=== PATIENT | female | born 1945 | race Caucasian/White ===

== ENCOUNTER 2019-02-20 11:33 | Emergency (ER) | payer MEDICARE ==
[2019-02-20 12:01] LABS: Bilirubin Negative (Negative); Blood, Urine Negative (Negative); Clarity CLEAR (Clear); Glucose, Urine (Dipstick) Negative (Negative); Leukocyte Negative (Negative); Nitrite Negative (Negative); Protein, Urine (Dipstick) Negative (Neg-Trace); Specific Gravity, Urine 1.019 (1.002-1.036); Urobilinogen 0.2 mg/dL (0.2-1.0); pH, Urine 6.5 (5.0-9.0)
[2019-02-20 12:12] LABS: #Lymphocytes 2.3 thou/uL (1.20-3.40); #Monocytes 0.7 thou/uL (0.11-0.59); #Neutrophils 16.3 thou/uL (1.40-6.50); %Basophils 0.1 % (0.0-1.0); %Eosinophils 0.2 % (0.0-10.0); %Lymphocytes 11.8 % (21.0-51.0); %Monocytes 3.7 % (0.0-10.0); %Neutrophils 84.2 % (42.0-75.0); Hemoglobin 12.9 g/dL (12.0-16.0); Mean Corpuscular HGB CONC 32.5 g/dL (32.0-36.0); Mean Corpuscular Hemoglobin 28.4 pg (27.0-31.0); Mean Corpuscular Volume 87.2 fL (78.0-98.0); Mean Platelet Volume 7.9 fL (7.4-10.4); Platelet Count 299 thou/uL (130-400); RBC Distribution Width 13.2 % (11.5-14.5); Red Blood Cell (RBC) Count 4.53 mill/uL (4.20-5.40); White Blood Cell (WBC) Count 19.4 thou/uL (4.8-10.8)
[2019-02-20 12:31] LABS: ALT (SGPT) 16 U/L (8-55); AST (SGOT) 12 U/L (5-34); Albumin 4.3 g/dL (3.4-4.8); Alkaline Phosphatase 85 U/L (40-150); Anion Gap 14 mmol/L (10-20); BUN (Urea Nitrogen) 20 mg/dL (9.8-20.1); Bilirubin, Total 0.5 mg/dL (0.2-1.2); Calc. Creatinine Clearance 0 mL/min (70-130); Calcium 9.8 mg/dL (7.8-10.44); Carbon Dioxide 27 mmol/L (23-31); Chloride 100 mmol/L (98-107); Estimated GFR-MDRD 90; Globulin 3.4 g/dL (2.4-3.5); Glucose 128 mg/dL (83-110); Lipase 11 U/L (8-78); Potassium 3.7 mmol/L (3.5-5.1); Protein, Total 7.7 g/dL (6.0-8.3); Sodium 137 mmol/L (136-145)
--- NOTE | 2019-02-20 13:44 | CT ---
ABDOMEN AND PELVIC CT SCAN WITH IV CONTRAST: Date: 02/20/19 HISTORY: Abdominal pain, history of hernia repair and cholecystectomy and hysterectomy. FINDINGS: Visualized lung bases appear clear. Status post cholecystectomy without ductal dilatation. Visualized pancreas and spleen are unremarkable. 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 Small hiatal hernia. No renal calculus or acute obstruct ion. Approximately 1.1 cm diameter low attenuation focus in the right kidney, but not a definitive cy st. This could represent a hemorrhagic cyst, or possibly a solid mass. Postop changes noted involving the region of the sigmoid colon with prior anastomosis. Minimal left colon diverticulosis without ac lili diverticulitis. Evidence for lower lumbar spine laminectomy. No evidence for large or small bowel obstruction. No abscess or abnormal fluid collection. IMPRESSION: No significant acute process in the abdomen or pelvis. Bilateral small adrenal nodularity, including a small right adrenal myolipoma. 1.1 cm diameter low attenuation focus in the right kidney, not a def initive benign cyst. Depending upon concern, nonemergent follow-up CT scan with and without IV contra st with renal mass protocol should be considered. Postop anastomotic changes in the region of the sig moid colon with some left-sided colon diverticulosis but no evidence for acute diverticulitis. Small hiatal hernia. No evidence for overt bowel obstruction. Other findings as above. POS: OFF
[2019-02-20] MEDS ORDERED: ISOVUE-370 76%-LOCM 1 ML ONE (13:58)
[2019-02-20] MEDS ORDERED: Ondansetron PF 4 MG/2 ML Vial ONE (15:23)
[2019-02-20] MEDS ORDERED: Dicyclomine 20 MG TAB ONE (19:30)
== END 2019-02-20 19:38 | disposition home or self-care (01) ==
LOC: ERS 11:33
DX: K59.00 Constipation, unspecified (principal); K56.609 Unspecified intestinal obstruction, unspecified as to partial versus complete obstruction; I10 Essential (primary) hypertension; I48.91 Unspecified atrial fibrillation
CPT/HCPCS: 36415; 74177; 80053; 81003; 83690; 85025; 96361; 96374; J2405

== ENCOUNTER 2019-08-01 09:46 | Outpatient (CLI) | payer MEDICARE ==
--- NOTE | 2019-08-01 11:14 | MMO ---
Bilateral MAMMO Bilat Screen [facility]DI+[facility]ANIA. CLINICAL HISTORY: Patient is 73 years old and is seen for screening. The patient has no family history of breast cancer. The patient has no personal history of cancer. VIEWS: The views performed were: bilateral craniocaudal with tomosynthesis; bilateral mediolateral oblique with tomosynthesis; and right craniocaudal. FILMS COMPARED: The present examination has been compared to a prior imaging study performed at [facility] on 08/02/2018. This study has been interpreted with the assistance of computer-aided detection. MAMMOGRAM FINDINGS: There are scattered fibroglandular densities. There are benign appearing calcifications seen in both breasts. There are no suspicious masses, suspicious calcifications, or new areas of architectural distortion. IMPRESSION: THERE IS NO MAMMOGRAPHIC EVIDENCE OF MALIGNANCY. A ROUTINE FOLLOW-UP MAMMOGRAM IN 1 YEAR IS RECOMMENDED. THE RESULTS OF THIS EXAM WERE SENT TO THE PATIENT. ACR BI-RADS Category 2 - Benign finding MAMMOGRAPHY NOTE: 1. A negative mammogram report should not delay a biopsy if a dominant of clinically suspicious mass is present. 2. Approximately 10% to 15% of breast cancers are not detected by mammography. 3. Adenosis and dense breasts may obscure an underlying neoplasm. Reported by: YOLIS SINGH MD Electonically Signed: [id number]
== END 2019-08-01 09:47 | disposition home or self-care (01) ==
LOC: BICMAMMO 09:46
PROVIDERS: ATTEND Family Medicine
DX: Z12.31 Encounter for screening mammogram for malignant neoplasm of breast (principal)
CPT/HCPCS: 77063; 77067

== ENCOUNTER 2019-12-24 13:36 | Observation (INO) | payer MEDICARE ==
[2019-12-24 14:09] LABS: #Basophils 0.1 thou/uL (0.0-0.2); #Eosinphils 0.2 thou/uL (0.0-0.7); #Lymphocytes 4.3 thou/uL (1.20-3.40); #Monocytes 0.6 thou/uL (0.11-0.59); #Neutrophils 6.6 thou/uL (1.40-6.50); %Basophils 0.4 % (0.0-1.0); %Eosinophils 1.5 % (0.0-10.0); %Lymphocytes 36.8 % (21.0-51.0); %Monocytes 5.4 % (0.0-10.0); %Neutrophils 55.9 % (42.0-75.0); Hemoglobin 13.7 g/dL (12.0-16.0); Mean Corpuscular HGB CONC 33.3 g/dL (32.0-36.0); Mean Corpuscular Hemoglobin 29.1 pg (27.0-31.0); Mean Corpuscular Volume 87.4 fL (78.0-98.0); Mean Platelet Volume 8.6 fL (7.4-10.4); Platelet Count 293 thou/uL (130-400); RBC Distribution Width 12.9 % (11.5-14.5); Red Blood Cell (RBC) Count 4.71 mill/uL (4.20-5.40); White Blood Cell (WBC) Count 11.8 thou/uL (4.8-10.8)
--- NOTE | 2019-12-24 14:14 | RAD ---
EXAM: CHEST ONE VIEW HISTORY: Dyspnea. Fluttering in chest which started today. COMPARISON: 04/03/2018 FINDINGS: The cardiac silhouette and pulmonary vasculature is within normal limits. The lungs are clear. The os seous structures are intact. Vascular calcification are again seen in the thoracic aorta. IMPRESSION: No acute cardiopulmonary process.
[2019-12-24 14:40] LABS: ALT (SGPT) 13 U/L (8-55); AST (SGOT) 10 U/L (5-34); Albumin 4.7 g/dL (3.4-4.8); Alkaline Phosphatase 98 U/L (40-110); Anion Gap 13 mmol/L (10-20); BUN (Urea Nitrogen) 18 mg/dL (9.8-20.1); Bilirubin, Total 0.3 mg/dL (0.2-1.2); Calc. Creatinine Clearance 0 mL/min (70-130); Calcium 10.2 mg/dL (7.8-10.44); Carbon Dioxide 29 mmol/L (23-31); Chloride 102 mmol/L (98-107); Estimated GFR-MDRD 77; Globulin 3.5 g/dL (2.4-3.5); Glucose 151 mg/dL (83-110); Magnesium 1.9 mg/dL (1.6-2.6); Potassium 3.1 mmol/L (3.5-5.1); Protein, Total 8.2 g/dL (6.0-8.3); Sodium 141 mmol/L (136-145)
[2019-12-24] MEDS ORDERED: Diltiazem 125 MG in Sodium Chloride 0.9% 100 ML IVPB PRN (16:25)
[2019-12-24] MEDS: Potassium Chloride 20 MEQ TAB PO SCH ×2 (16:30→20:28)
[2019-12-24 17:22] LABS: Troponin I Less than 0.010 ng/mL (< 0.028)
--- NOTE | 2019-12-24 17:22 | HP ---
PRIMARY CARE PROVIDER: Dr. Maria Luisa He. PRIMARY ARMATURE COIL WINDER: Dr. Hernández. CHIEF COMPLAINT: Palpitations. HISTORY OF PRESENT ILLNESS: Ms. Rios is a pleasant 74-year-old lady, who was seen at [facility] on December 24, 2019. She reports that several years ago, she was diagnosed with atrial fibrillation. She was started on propafenone 150 mg 3 times a day. She has not been on anticoagulation for atrial fibrillation. She does report being on anticoagulation for a short duration following knee replacement surgery. The patient reportedly converted to normal sinus rhythm soon after diagnosis. She had one incident during this year, seems she forgot her propafenone dose, and had atrial fibrillation. She took her medications today. However, around 12:30 a.m., she started having lightheadedness and palpitations. She checked her pulse and found that it was irregular. She had her colleague put on a Fitbit watch on her, and it showed heart rate fluctuating and above 100. She therefore presented to the emergency room. She reports that the palpitations were associated with shortness of breath. She denies any chest pain, nausea, or vomiting. She denies any abdominal pain. REVIEW OF SYSTEMS: All systems were reviewed and found to be negative except for pertinent positives mentioned above. PAST MEDICAL HISTORY: Small bowel obstruction, hypertension, right lower extremity neuropathy, ataxia, atrial fibrillation, chronic constipation. PAST SURGICAL HISTORY: Colectomy, section x2, left knee replacement, hysterectomy, and oophorectomy. SOCIAL HISTORY: Rare alcohol use, no tobacco use or recreational drug use. FAMILY HISTORY: Atrial fibrillation in her mother. CODE STATUS: I discussed her code status. She is full code. ALLERGIES: OPIOIDS AND SULFA. CURRENT MEDICATIONS: 1. Propafenone 150 mg 3 times a day. 2. Amlodipine 5 mg 2 times a day. 3. Lisinopril/hydrochlorothiazide 20/12.5 mg 2 times a day. 4. Linzess 145 mcg every other day. 5. Aspirin 81 mg daily. PHYSICAL EXAMINATION: GENERAL: Ms. Rios is awake and alert, not in acute distress. VITAL SIGNS: Blood pressure is 125/89, pulse 109, respiratory rate 16, and oxygen saturation 99% on room air. She is afebrile. EYES: No scleral icterus. No conjunctival pallor. ENT: Moist mucosal membranes. No oropharyngeal erythema or exudates. NECK: Supple, nontender. Trachea is midline. RESPIRATORY: Accessory muscles of breathing are not active. Chest wall movements are symmetric bilaterally. LUNGS: Clear to auscultation without wheezes, rhonchi, or crepitations. CARDIOVASCULAR: S1 and S2 are heard, irregular. Peripheral pulses palpable. No pericardial rub. ABDOMEN: Soft, nontender, bowel sounds are heard. NEUROLOGIC: Cranial nerves 2 through 12 are intact. MUSCULOSKELETAL: Power is 5/5 in all 4 extremities. SKIN: No rashes or subcutaneous nodules. LYMPHATIC: No cervical lymphadenopathy. PSYCHIATRIC: Normal mood, normal affect, the patient is oriented to person, place, and time. LABORATORY DATA: Ms. Rios's labs and investigations were reviewed. I reviewed her electrocardiogram, which shows atrial fibrillation with rapid ventricular response, no ST changes to suggest an acute coronary syndrome. I also reviewed her chest x-ray, which does not show any pulmonary infiltrates. She has leukocytosis with 11,800 white cells, normal hemoglobin, normal platelet count, decreased potassium of 3.1, otherwise unremarkable comprehensive metabolic profile, and normal TSH. ASSESSMENT AND PLAN: Ms. Rios is a pleasant 74-year-old lady, who was seen at [facility] on December 24, 2019. Her problem list includes: 1. Atrial fibrillation with rapid ventricular response: Ms. Rios is presenting with recurrence of atrial fibrillation with rapid ventricular response. She will be admitted to the hospital. She has been started on Cardizem drip at 5 mg/hour and is currently at 7.5 mg/hour, which I will continue. I will also continue her propafenone. Cardiology Service is being consulted for opinion and help with management. 2. Hypokalemia: We will replace potassium and recheck. 3. Hypertension: We will resume home medications once clarified, monitor vital signs, and titrate antihypertensives as needed. 4. Chronic constipation: Continue Linzess. Many thanks for allowing me to participate in your patient's care. Please feel free to contact me with any questions or concerns. LEVEL OF RISK: High. LEVEL OF COMPLEXITY: High. Job ID: [id number]
[2019-12-24 18:34] VITALS: BMI 36.5
[2019-12-24] MEDS ORDERED: Polyethylene Glycol 3350 17 GM Packet PO PRN (19:24)
[2019-12-24] MEDS ORDERED: Acetaminophen 325 MG TAB PO PRN (19:24)
[2019-12-24] MEDS ORDERED: Bisacodyl 5 MG TAB PO PRN (19:25)
[2019-12-24] MEDS ORDERED: Ondansetron PF 4 MG/2 ML Vial IVP PRN (19:25)
[2019-12-24 20:29] LABS: Troponin I Less than 0.010 ng/mL (< 0.028)
[2019-12-24] MEDS: Diltiazem 125 MG in Sodium Chloride 0.9% 100 ML IVPB SCH (20:29)
[2019-12-24] MEDS ORDERED: Aspirin 81 mg Enteric Coated Tablet PO SCH (21:00)
[2019-12-24] MEDS: Propafenone HCl 150 MG TAB PO SCH (22:17)
[2019-12-25 04:36] LABS: #Eosinphils 0.2 thou/uL (0.0-0.7); #Lymphocytes 4.1 thou/uL (1.20-3.40); #Monocytes 0.7 thou/uL (0.11-0.59); #Neutrophils 4.8 thou/uL (1.40-6.50); %Basophils 0.5 % (0.0-1.0); %Eosinophils 2.1 % (0.0-10.0); %Lymphocytes 41.7 % (21.0-51.0); %Monocytes 7.1 % (0.0-10.0); %Neutrophils 48.7 % (42.0-75.0); Hemoglobin 11.9 g/dL (12.0-16.0); Mean Corpuscular HGB CONC 32.4 g/dL (32.0-36.0); Mean Corpuscular Hemoglobin 28.6 pg (27.0-31.0); Mean Corpuscular Volume 88.2 fL (78.0-98.0); Mean Platelet Volume 8.2 fL (7.4-10.4); Platelet Count 253 thou/uL (130-400); RBC Distribution Width 12.9 % (11.5-14.5); Red Blood Cell (RBC) Count 4.15 mill/uL (4.20-5.40); White Blood Cell (WBC) Count 9.9 thou/uL (4.8-10.8)
[2019-12-25 04:53] LABS: Anion Gap 12 mmol/L (10-20); BUN (Urea Nitrogen) 13 mg/dL (9.8-20.1); Calc. Creatinine Clearance 132 mL/min (70-130); Carbon Dioxide 24 mmol/L (23-31); Chloride 107 mmol/L (98-107); Estimated GFR-MDRD Greater than 90; Glucose 111 mg/dL (83-110); Potassium 3.7 mmol/L (3.5-5.1); Sodium 139 mmol/L (136-145)
[2019-12-25] MEDS: Diltiazem 125 MG in Sodium Chloride 0.9% 100 ML IVPB SCH (05:25)
[2019-12-25] MEDS: Propafenone HCl 150 MG TAB PO SCH ×2 (06:28→13:59)
[2019-12-25] MEDS ORDERED: Amlodipine 5 MG TAB PO SCH (09:00)
[2019-12-25] MEDS ORDERED: Losartan/Hydrochlorothiazide 100 mg/25 mg Tablet PO SCH (09:00)
[2019-12-25] MEDS ORDERED: Calcium/Multivitamins W-Iron 1 TAB TAB PO SCH (09:00)
[2019-12-25] MEDS ORDERED: Prevnar 13-Val Conj/PF 0.5 ML SYRINGE IM ONE (09:00)
[2019-12-25] MEDS ORDERED: Enoxaparin Sodium 40 MG/0.4 ML SYRINGE SC SCH (09:00)
--- NOTE | 2019-12-25 14:03 | PDOC.HOSPP ---
- Subjective Encounter Date: 12/25/19 Encounter Time: 08:20 Subjective: Pt seen for followup re: a.fib with rvr. Feels well, no complaints today. - Objective Vital Signs & Weight: Vital Signs (12 hours) Temp Pulse Resp BP Pulse Ox 12/25/19 11:12 98.4 F 73 18 141/66 H 97 12/25/19 07:28 98.1 F 65 18 135/63 97 12/25/19 03:56 97.6 F 69 20 122/59 L 96 Weight Weight 206 lb 1.6 oz I&O: 12/24/19 12/25/19 12/26/19 06:59 06:59 06:59 Intake Total 597 Balance 597 Result Diagrams: 12/25/19 04:22 12/25/19 04:22 Additional Labs: Labs and MARs reviewed by me EKG Reviewed by me: Yes (tele: NSR) Hospitalist ROS - Review of Systems Cardiovascular: denies: chest pain, palpitations, orthopnea, paroxysmal noc. dyspnea, edema, light headedness Gastrointestinal: denies: nausea, vomiting, abdominal pain, diarrhea, constipation, melena, hematochezia - Medication Medications: Active Medications Generic Name Dose Route Start Last Admin Trade Name Freq PRN Reason Stop Dose Admin Amlodipine Besylate 5 mg 12/25/19 09:00 12/25/19 08:19 Norvasc PO 5 mg DAILY DEDRICK Administration Aspirin 81 mg 12/24/19 21:00 12/24/19 20:28 Ecotrin PO 81 mg HS DEDRICK Administration Enoxaparin Sodium 40 mg 12/25/19 09:00 12/25/19 08:20 Lovenox SC 40 mg 0900 DEDRICK Administration HCTZ/Losartan Potassium 1 tab 12/25/19 09:00 12/25/19 08:19 Hyzaar 100/25 PO 1 tab DAILY DEDRICK Administration Iron/Minerals/Multivitamins 1 tab 12/25/19 09:00 12/25/19 08:19 Fosfree PO 1 tab DAILY DEDRICK Administration Polyethylene Glycol 17 gm 12/24/19 19:24 12/24/19 20:29 Miralax PO 17 gm DAILY PRN Administration Constipation Propafenone HCl 150 mg 12/24/19 22:00 12/25/19 13:59 Rythmol PO 150 mg Q8HR DEDRICK Administration - Exam General - other findings: Obese Eye: anicteric sclera ENT: moist mucosa Neck: supple Heart: RRR, no rubs Respiratory: CTAB, no rales Gastrointestinal: soft, non-tender Skin: no rashes Musculoskeletal: no muscle wasting Psychiatric: normal affect, normal behavior Hosp A/P (1) Atrial fibrillation with RVR Code(s): I48.91 - UNSPECIFIED ATRIAL FIBRILLATION Status: Acute (2) HTN (hypertension) Code(s): I10 - ESSENTIAL (PRIMARY) HYPERTENSION Status: Chronic (3) Chronic constipation Code(s): K59.09 - OTHER CONSTIPATION Status: Chronic (4) Hypokalemia Code(s): E87.6 - HYPOKALEMIA Status: Resolved - Plan out of bed/ambulate Pt cardioverted to NSR last night. Continue propafenone. HTN reasonably controlled. Continue Linzess. Pt awaiting cardiology consult and 2D echo. Likely dc later today or tomorrow.
[2019-12-25 15:38] VITALS: BP 152/68; TEMP 98.6
--- NOTE | 2019-12-25 17:06 | CON ---
DATE OF CONSULTATION: 12/25/2019 PRIMARY CARE PHYSICIAN: Dr. He. TECHNICAL CONSULTANT: Dr. Hernández at [facility]. HISTORY OF PRESENT ILLNESS: The patient is a 74-year-old female who presented yesterday afternoon during an approximately 3-hour episode of palpitations and light-headedness that started around 1:30 p.m. The patient has a history of atrial fibrillation and has been on propafenone 150 mg t.i.d. She has not been on any anticoagulation other than just a daily baby aspirin. The patient was found to have atrial fibrillation with RVR in the ER up to the 130s. She was started on diltiazem drip and her atrial fibrillation resolved and she converted back to normal sinus rhythm. The patient denied any chest pain or shortness of breath with the palpitations. She did report feeling lightheaded. She reports the last time this happened was about a year ago. She is seen every six months by Dr. Hernández. She reports she has had a negative stress a few years ago, as well as a normal echocardiogram in the past. MEDICATIONS: 1. Aspirin 81 mg p.o. daily. 2. Propafenone 150 mg p.o. t.i.d. 3. Amlodipine 5 mg p.o. daily. 4. Losartan/hydrochlorothiazide 100/25 p.o. daily. 5. MiraLAX 17 g p.o. daily. 6. Multivitamin daily. 7. Tylenol 650 mg p.o. q.i.d. p.r.n. ALLERGIES: OPIATES AND SULFA. PAST MEDICAL HISTORY: Small bowel obstruction x2, hypertension, neuropathy, atrial fibrillation, chronic constipation, arthritis, right lower extremity neuropathy. PAST SURGICAL HISTORY: section x2, left knee replacement, hysterectomy , tubectomy and oophorectomy, cholecystectomy, small bowel resection, two abdominal hernia surgery repairs, right 4th toe amputation, hammertoe surgery in the right foot. SOCIAL HISTORY: Denies tobacco or drug use. Occasional alcohol use. FAMILY HISTORY: Positive for atrial fib in her mother. REVIEW OF SYSTEMS: A 12-point review of systems negative except for as mentioned above. PHYSICAL EXAMINATION: VITAL SIGNS: Temperature 98.6, pulse 80, respirations 18, O2 saturation 98% on room air, blood pressure 152/68. GENERAL: Well-appearing white female, in no acute distress. Sitting comfortably at the bedside. EYES: No scleral icterus. Extraocular motions intact. NECK: Trachea midline. Supple. CARDIAC: Regular rate and rhythm. No murmurs, rubs, or gallops. LUNGS: Bilaterally clear to auscultation. No wheezing or rhonchi. ABDOMEN: Soft and nontender. SKIN: No rashes. Warm. PSYCHIATRIC: Alert and oriented. LABORATORY DATA: White blood cells 9.9, hemoglobin 11.9, platelets 253. Sodium 139, potassium 3.7, chloride 107, carbon dioxide 24, BUN 13, creatinine 0.57, glucose 111, calcium 10.2, magnesium 1.9. Troponins less than 0.01 x3. TSH 1.6 within normal range. ASSESSMENT AND PLAN: 1. Atrial fibrillation with rapid ventricular response, resolved. The patient is now converted back to normal sinus rhythm. Continue current regimen of propafenone 150 mg t.i.d. EKG showed no ST-segment elevation. Echocardiogram showed normal ejection fraction of 65%. Mild tricuspid regurgitation. Mild left atrial dilatation. As patient is stable at this time, discussed with patient whether she would like to do a stress test here in the hospital or to pursue further work up outpatient with her regular lead infrastructure architect. The patient elected to follow up with her lead infrastructure architect outpatient. Recommend starting Eliquis 5 mg b.i.d. for anticoagulation. 2. Hypokalemia, resolved. 3. Hypertension. Continue home medication. 4. Chronic constipation. Continue home medications. Job ID: [id number] MTDD
--- NOTE | 2019-12-25 19:41 | DIS ---
DATE OF ADMISSION: 12/24/2019 DATE OF DISCHARGE: 12/25/2019 PRIMARY CARE PROVIDER: Dr. Maria Luisa He. DISCHARGE DIAGNOSES: 1. Atrial fibrillation with rapid ventricular response. 2. Hypokalemia. CONDITION OF PATIENT ON THE DAY OF DISCHARGE: Stable. I assessed Ms. Rios on the day of discharge. Please refer to my daily hospitalist progress note for further details regarding this [id number] encounter. CONSULTATIONS DURING THIS HOSPITALIZATION: Cardiology, Dr. Madyson Acosta. HOSPITAL COURSE: Ms. Rios is a pleasant 74-year-old lady, who was admitted to [facility] for atrial fibrillation with rapid ventricular response. Please refer to my history and physical note dated 12/24/2019, for further details. Shortly after admission, she converted to normal sinus rhythm and continued to be in normal sinus rhythm. She has been started on apixaban by Cardiology Service and cleared for discharge. She is being discharged home in a stable condition. DISCHARGE MEDICATIONS: The patient has been started on apixaban 5 mg 2 times a day. Otherwise, no change was made to her pre-admission home medications as dictated in my history and physical note dated 12/24/2019. POST ACUTE CARE FOLLOWUP: With her primary care provider in 3 days and with her certified medicine aide in 1 week. DIET: Heart healthy diet. ACTIVITY: No restrictions. DISCHARGE DESTINATION: Home. LABORATORY DATA: On the day of discharge, she has normal electrolytes, creatinine 0.57. White count 9900, hemoglobin 11.9, and platelet count 253,000. Job ID: [id number]
[2019-12-25] MEDS ORDERED: Apixaban 5 MG TAB PO SCH (21:00)
--- NOTE | 2019-12-26 07:51 | CON ---
DATE OF CONSULTATION: 12/25/2019 ADDENDUM TO CARDIOLOGY CONSULTATION NOTE: INDICATION FOR CONSULTATION: This is a 74-year-old female with an episode of atrial fibrillation. She has had a history of intermittent atrial fibrillation in the past. She has been followed by Dr. Hernández at [facility]. 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 She was given IV diltiazem and converted back to sinus rhythm shortly after she was given the medication. She normally takes propafenone 150 mg 3 times a day. She believes that she is taking her medication and did not have any other stressful situations that may have provoked the atrial fibrillation. Her last episode of atrial fibrillation she thinks was about a year ago and she routinely follows up with Dr. Hernández and had no significant complications or difficulties. Her echocardiogram still shows normal left ventricular systolic function. There were no acute changes otherwise noted. No wall motion abnormalities. Cardiac enzymes are negative for myocardial infarction. EKG did not show evidence of ischemia. TSH was normal at 1.6. At this time, she is back to her baseline and is desiring to be discharged to home. I suggested that she may need to undergo a repeat stress test in the future or even some adjustments of her medications, but at this time she is doing quite well on medications, just had this one episode in a year's time, which was converted with diltiazem. She will be seen by Dr. Sunil Hernández as soon as possible as an outpatient for evaluation and discussion of her medications to see whether or not any changes need to be made. Also to discuss whether or not she may be a candidate to undergo ablation of atrial fibrillation or to just continue medical management and whether any other significant evaluation would be indicated such as stress testing. At this time, she remains stable and I believe the patient is stable for discharge. I have reviewed this patient and discussed this patient in detail with the family practice resident and would agree with her assessment and plan. Job ID: [id number]
== END 2019-12-25 17:27 | disposition home or self-care (01) ==
LOC: ERS 13:36 → INTOOBSV 18:19 → 2NO 18:19
PROVIDERS: ADMIT Internal Medicine; ATTEND Internal Medicine
DX: I48.91 Unspecified atrial fibrillation (principal); E87.6 Hypokalemia; I10 Essential (primary) hypertension; K59.09 Other constipation; Z79.82 Long term (current) use of aspirin; Z79.899 Other long term (current) drug therapy; Z88.2 Allergy status to sulfonamides; Z88.5 Allergy status to narcotic agent
CPT/HCPCS: 71045; 80048; 83735; 84484 ×2; 85025; 93005; 93306; 96365; 96366; 96376; 99285; G0378; 36415; 80053; 84443; J1650; J3490

== ENCOUNTER 2020-08-02 11:04 | Outpatient (CLI) | payer MEDICARE ==
--- NOTE | 2020-08-02 11:46 | MMO ---
Bilateral MAMMO Bilat Screen DDI+DANIA. CLINICAL HISTORY: Patient is 74 years old and is seen for screening. The patient has no family history of breast cancer. The patient has no personal history of cancer. VIEWS: The views performed were: bilateral craniocaudal with tomosynthesis and bilateral mediolateral oblique with tomosynthesis. FILMS COMPARED: The present examination has been compared to prior imaging studies performed at [facility] on 03/19/2009, 02/03/2011, 08/02/2018 and 08/01/2019. This study has been interpreted with the assistance of computer-aided detection. MAMMOGRAM FINDINGS: There are scattered fibroglandular densities. There are no suspicious masses, suspicious calcifications, or new areas of architectural distortion. IMPRESSION: THERE IS NO MAMMOGRAPHIC EVIDENCE OF MALIGNANCY. A ROUTINE FOLLOW-UP MAMMOGRAM IN 1 YEAR IS RECOMMENDED. THE RESULTS OF THIS EXAM WERE SENT TO THE PATIENT. ACR BI-RADS Category 2 - Benign finding MAMMOGRAPHY NOTE: 1. A negative mammogram report should not delay a biopsy if a dominant of clinically suspicious mass is present. 2. Approximately 10% to 15% of breast cancers are not detected by mammography. 3. Adenosis and dense breasts may obscure an underlying neoplasm. Reported by: RADHA MONTOYA MD Electonically Signed: [id number]
== END 2020-08-02 11:05 | disposition home or self-care (01) ==
LOC: BICMAMMO 11:04
PROVIDERS: ATTEND Family Medicine
DX: Z12.31 Encounter for screening mammogram for malignant neoplasm of breast (principal)
CPT/HCPCS: 77063; 77067

== ENCOUNTER 2024-04-23 08:40 | Outpatient (CLI) | payer OTHER | END 2024-04-23 08:41 | disposition home or self-care (01) | LOC: SCSMRI 08:40 | PROVIDERS: ATTEND Orthopaedic Surgery | DX: M79.661 Pain in right lower leg (principal); M19.071 Primary osteoarthritis, right ankle and foot; M79.89 Other specified soft tissue disorders ==

== ENCOUNTER 2024-11-28 13:26 | Outpatient (CLI) | payer OTHER | END 2024-11-28 13:27 | disposition home or self-care (01) | LOC: SCSRAD 13:26 | PROVIDERS: ATTEND Family Medicine | DX: M54.6 Pain in thoracic spine (principal); M47.814 Spondylosis without myelopathy or radiculopathy, thoracic region; M47.812 Spondylosis without myelopathy or radiculopathy, cervical region | CPT/HCPCS: 72070 ==

== ENCOUNTER 2024-12-23 13:07 | Outpatient (CLI) | payer OTHER | END 2024-12-23 13:08 | disposition home or self-care (01) | LOC: SCSMRI 13:07 | PROVIDERS: ATTEND Family Medicine | DX: M47.814 Spondylosis without myelopathy or radiculopathy, thoracic region (principal); M48.04 Spinal stenosis, thoracic region; M51.34 Other intervertebral disc degeneration, thoracic region | CPT/HCPCS: 72146 ==